=== PATIENT | female | born 2000 | race Two or more races ===

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

== ENCOUNTER → 2024-10-21 | Emergency (ER) | payer OTHER ==
[~2024-10-21] VITALS: Ht 172.7 cm; Wt 71.2 kg
[~2024-10-21] MED LIST changes: +FAMOTIDINE/PF 20 MG/2 ML VIAL ONE; +FAMOtidine 10 MG/ML (4ML VIAL) IV PUSH ONE; +KETOROLAC TROMETHAMINE 60 MG VIAL IM ONE; +PEPCID AC20 MG PO
== END | disposition home or self-care (01) ==
LOC: ER 10:51
DX: K21.9 Gastro-esophageal reflux disease without esophagitis (principal)